=== PATIENT | female | born 1990 | race Caucasian/White ===

== ENCOUNTER 2024-03-16 12:06 | Emergency (ER) | payer BC ==
[2024-03-16] MEDS ORDERED: fentaNYL 50 mcg/mL 1 mL Vial ONE (13:16)
[2024-03-16] MEDS ORDERED: Midazolam HCl 2 mg/2 ml Vial ONE (13:17)
[2024-03-16] MEDS ORDERED: Ondansetron PF 4 MG/2 ML Vial ONE (13:22)
== END 2024-03-16 14:19 | disposition home or self-care (01) ==
LOC: BURERS 12:06
DX: S03.01XA Dislocation of jaw, right side, initial encounter (principal); E10.9 Type 1 diabetes mellitus without complications; X58.XXXA Exposure to other specified factors, initial encounter
CPT/HCPCS: 21480; 96374; 96375; J2250; J2405; J3010